=== PATIENT | female | born 2000 | race Caucasian/White ===

== ENCOUNTER 2022-07-23 07:54 | Outpatient (CLI) | payer BC, SELFPAY | END 2022-07-23 07:55 | disposition home or self-care (01) | LOC: AMB 09-12 20:28 | PROVIDERS: Visit Provider Family Medicine | DX: R55 Syncope and collapse (principal) | CPT/HCPCS: A0998 ==

== ENCOUNTER 2023-03-20 13:41 | Outpatient (CLI) | payer BC, SELFPAY | END 2023-03-20 13:42 | disposition home or self-care (01) | LOC: AMB 03-23 05:10 | PROVIDERS: Visit Provider Internal Medicine | DX: R06.09 Other forms of dyspnea (principal) | CPT/HCPCS: A0998 ==

== ENCOUNTER 2023-05-17 17:47 | Emergency (ER) | payer BC, SELFPAY ==
[2023-05-17 17:52] VITALS: BP 160/101; PULSE 110; RESP 18; TEMP 35.9; O2SAT 97; BMI 39.5
--- NOTE | 2023-05-17 18:10 | ED_ITS ---
HPI - Extremity Injury (Lower) General Chief Complaint: Extremity Pain/Injury, Lower Stated Complaint: L ankle pain, swelling Time Seen by Provider: 05/17/23 17:48 History of Present Illness HPI Narrative: This 22-year-old female twisted her left ankle a few days ago. She states that she walked on it for several hours afterward before going into urgent care. She had an x-ray there which was negative. She received a gel splint and crutches and was told if there is any swelling or any bruising that she needs to be seen again. Since then there has been some swelling and she states that she does not care to wear the splint and crutches are not well served for her with some back pain that she reports. Related Data Home Medications Medication Instructions Recorded Confirmed multivitamin 1 tab PO QAM 05/15/23 05/15/23 norethindrone 1 mg-ethinyl 1 tab PO DAILY 05/15/23 05/15/23 estradiol 10 mcg (24)-iron 10 mcg(2) tablet (Lo Loestrin Fe) Allergies Allergy/AdvReac Type Severity Reaction Status Date / Time Sulfa (Sulfonamide Allergy Verified 05/15/23 13:39 Antibiotics) Review of Systems Status of ROS: Reports: 10 or more systems reviewed and unremarkable except as noted in History and below Narrative: Constitutional: No fevers, no weight gain or loss. Eyes: No discharge. No vision changes. HENT: No congestion, no sore throat, no ear pain. Cardiovascular: No chest pain, no palpitations. Respiratory: No shortness of breath, no wheezes, no cough. Gastrointestinal: No abdominal pain, no vomiting, no diarrhea. Genitourinary: No dysuria, no hematuria. Musculoskeletal: Left ankle injury as described above. Skin: No rashes, no pruritis. Neurological: No dizziness, weakness, sensory change, speech change. Endo/Heme/Allergies: No bruising or bleeding. No polydipsia. Pysch: no suicidality, no anxiety, no insomnia. All other systems reviewed and are negative. PFSH PFSH Social History Smoking Status: Never smoker Do you use any of these nicotine containing products: None Second hand tobacco smoke exposure: No How often do you have a drink containing alcohol: never How often do you have six or more drinks on one occasion: Never AUDIT-C Alcohol total score: 0 Non-prescribed substance use: denies use service: No Exam Narrative: Exam Narrative: Constitutional: Well-developed, well-nourished, no acute distress. HEENT: Normocephalic, atraumatic. Neck: Normal range of motion. Nontender. Supple. Heart: Intact distal pulses. Lungs: No chest discomfort. No wheezes, rhonchi, or rales. Abdomen: Nontender. Back: Normal range of motion. Extremities: Mild to moderate swelling over the left lateral malleolus. No joint instability or joint effusion. Decreased range of motion due to pain. Skin: Intact. No rash. Warm. No erythema or pallor. Neurologic: No altered sensation. No weakness. Alert and oriented. Psychiatric: No suicidality. No anxiety or depression. No insomnia. Nursing notes and vitals signs are reviewed. Const: Vital Signs, click to edit/add: Vital Signs - 24 hr 05/17/23 17:52 Temperature 96.6 F L Pulse Rate [Pulse Oximeter] 110 H Respiratory Rate 18 Blood Pressure [Ri ght Forearm] 160/101 H Pulse Oximetry 97 Oxygen Delivery Me thod Room Air Course Vital Signs Vital signs: Initial Vital Signs Temperature 96.6 F L 05/17/23 17:52 Temperature Source Temporal Artery Scan 05/17/23 17:52 Pulse Rate 110 H 05/17/23 17:52 Pulse Rhythm Regular 05/17/23 17:52 Respiratory Rate 18 05/17/23 17:52 Blood Pressure 160/101 H 05/17/23 17:52 Blood Pressure Mean 120 H 05/17/23 17:52 Blood Pressure Position Supine 05/17/23 17:52 Pulse Oximetry 97 05/17/23 17:52 Oxygen Delivery Method Room Air 05/17/23 17:52 Vital Signs Temperature 96.6 F L 05/17/23 17:52 Pulse Rate 110 H 05/17/23 17:52 Respiratory Rate 18 05/17/23 17:52 Blood Pressure 160/101 H 05/17/23 17:52 Pulse Oximetry 97 05/17/23 17:52 Oxygen Delivery Method Room Air 05/17/23 17:52 Temperature 96.6 F L 05/17/23 17:52 Pulse Rate 110 H 05/17/23 17:52 Respiratory Rate 18 05/17/23 17:52 Blood Pressure 160/101 H 05/17/23 17:52 Pulse Oximetry 97 05/17/23 17:52 Oxygen Delivery Method Room Air 05/17/23 17:52 MDM - Extremity Injury (Lower) MDM Narrative Medical decision making narrative: This patient has an ankle sprain with some typical symptoms of swelling on the lateral aspect as would be expected. She did have an x-ray in urgent care and I did review the images and the radiology report. There is no sign of fracture or dislocation. The patient comes in because she was told that if there is any swelling or bruising she needs to be seen again. This patient does have an ankle sprain but I stated to her that it is okay to ambulate as tolerated. She can wear this splint if desired but if she wears a too long it can actually weak in her muscles and prolong her recovery. She states that she does not care to wear the splint and would rather ambulate on the leg as tolerated as she does not like to use crutches. She is okay to be discharged home and received a prescription for Toradol from the [facility]. Discharge Plan Discharge Clinical Impression: Ankle sprain and strain Patient Disposition: Home, Self-Care Condition: Stable Additional Instructions: Take medication as needed and directed. Increase activity as tolerated. Follow up with MD or return if worsening. Prescriptions: No Action Lo Loestrin Fe 1 mg-10 mcg (24)/10 mcg (2) tablet 1 tab PO DAILY multivitamin Tablet 1 tab PO QAM Follow Up/Referrals: Provider,Not a Local [Primary Care Provider] - Stand Alone Forms: [employer] Info Instructions
== END 2023-05-17 18:23 | disposition home or self-care (01) ==
LOC: ED 18:21
PROVIDERS: Emergency Provider Emergency Medicine Emergency Medical Services; PCP Internal Medicine Cardiovascular Disease
DX: S93.402A Sprain of unspecified ligament of left ankle, initial encounter (principal)
CPT/HCPCS: 99283; 99284

== ENCOUNTER 2023-06-10 23:26 | Emergency (ER) | payer BC, SELFPAY ==
[2023-06-10 23:34] VITALS: BP 145/84; PULSE 85; RESP 18; TEMP 36.8; O2SAT 99; BMI 39.5
--- NOTE | 2023-06-11 00:14 | ED_ITS ---
HPI - General Adult General Chief complaint: Unspecified Complaint, Adult Stated complaint: Feeling Ill, Time Seen by Provider: 06/10/23 23:58 Source: patient Mode of arrival: ambulatory Limitations: no limitations History of Present Illness HPI narrative: 23-year-old female was advised to come in by nurse line after she had about 6 hours of diarrhea at home. Nonbloody, not accompanied by trauma or fever. No p rior history of abdominal surgeries. No vomiting. She is able to take down p.o. liquids with no difficulty. She has a mild epigastric area ache and then of course cramping with the diarrhea. No syncope or weakness. She reports that she did drink significant amounts of alcohol the night before in celebration of her 23st birthday. She has also recently started taking Prozac And Lunesta. No history of inflammatory bowel disease. She tried taking 2 Imodium earlier in the night with no improvement, then another tablet just prior to coming to the ED with no improvement in her symptoms. She also at some point took some Pepto- Bismol but she is not able to relate times to me which is curious. She reports a past medical history is notable for depression and anxiety. Home meds are Prozac, 10 mg once daily, Lunesta and an oral contraceptive. She is a nonsmoker. Recent binge drinking episode does not seem characteristic of her typical behavior. No pertinent travel. No obvious sick contacts. ROS notable for the GI symptoms as above only, otherwise denies times 12 systems Related Data Home Medications Medication Instructions Recorded Confirmed multivitamin 1 tab PO QAM 05/15/23 05/15/23 norethindrone 1 mg-ethinyl 1 tab PO DAILY 05/15/23 05/15/23 estradiol 10 mcg (24)-iron 10 mcg(2) tablet (Lo Loestrin Fe) Allergies Allergy/AdvReac Type Severity Reaction Status Date / Time Sulfa (Sulfonamide Allergy Verified 05/15/23 13:39 Antibiotics) [facility] Medical History No significant past medical history Surgical History No significant past surgical history Social History Smoking Status: Never smoker Do you use any of these nicotine containing products: None Second hand tobacco smoke exposure: No How often do you have a drink containing alcohol: never How often do you have six or more drinks on one occasion: Never AUDIT-C Alcohol total score: 0 Non-prescribed substance use: denies use service: No Exam Const: Vital Signs, click to edit/add: Vital Signs - 24 hr 06/10/23 23:34 Temperature 98.2 F Pulse Rate [Right Pulse Oximeter] 85 Respiratory Rate 18 Blood Pressure [Ri ght Upper Arm] 145/84 H Pulse Oximetry 99 Oxygen Delivery Me thod Room Air Documenting provider has reviewed patient's vital signs: yes Common normals: no apparent distress General appearance: cooperative and well kempt Other: able to take p.o. liquids with no difficulty, demonstrated in the room. HENMT: Common normals: normocephalic Head and scalp: normocephalic Face and sinus: normal facial exam Eye: General eye: normal appearance of both eyes Resp: Common normals: normal respiratory effort, no use of accessory muscles and clear to auscultation bilaterally Effort & inspection: able to speak in complete sentences Auscultation: clear to auscultation bilaterally Cardio: Common normals: regular rate, regular rhythm, S1 normal heart sound, S2 normal heart sound and no murmurs Rate: regular rate Rhythm: regular rhythm Heart sounds: S1 normal and S2 normal GI: Common normals: Normal to inspection, nondistended, normoactive bowel sounds present, soft to palpation, non-tender, no hepatosplenomegaly and no masses Palpation: soft and no hepatosplenomegaly Extremity: Common normals: normal to inspection and normal capillary refill Neuro: Speech: speech normal Gait (neuro): normal gait Motor exam: no movement abnormalities noted Psych: Appearance: well kempt Attitude: engaged Insight: insight good Judgement: judgment good Skin: Common normals: no rashes or lesions noted General skin exam: no rashes or lesions noted Course Course Hospital Course: Mild nonbloody diarrhea with no features of dangerous infection. No hypoten antonio, tachycardia, syncopal symptoms, weakness, mental status changes or other abnormality. Exam is also reassuring against obstruction, severe intra- abdominal pathology, pancreatitis or inflammatory bowel disease. There is no indication for IV fluids, further workup, imaging or labs at this time. Counseled patient on home management, continued use of Imodium. Alarm symptoms reviewed that would warrant ED presentation. She verbalizes understanding and agreement. She will be discharged home to continue p.o. hydration. Vital Signs Vital signs: Initial Vital Signs Temperature 98.2 F 06/10/23 23:34 Temperature Source Temporal Artery Scan 06/10/23 23:34 Pulse Rate 85 06/10/23 23:34 Respiratory Rate 18 06/10/23 23:34 Blood Pressure 145/84 H 06/10/23 23:34 Blood Pressure Mean 104 06/10/23 23:34 Blood Pressure Position Sitting 06/10/23 23:34 Pulse Oximetry 99 06/10/23 23:34 Oxygen Delivery Method Room Air 06/10/23 23:34 Vital Signs Temperature 98.2 F 06/10/23 23:34 Pulse Rate 85 06/10/23 23:34 Respiratory Rate 18 06/10/23 23:34 Blood Pressure 145/84 H 06/10/23 23:34 Pulse Oximetry 99 06/10/23 23:34 Oxygen Delivery Method Room Air 06/10/23 23:34 Temperature 98.2 F 06/10/23 23:34 Pulse Rate 85 06/10/23 23:34 Respiratory Rate 18 06/10/23 23:34 Blood Pressure 145/84 H 06/10/23 23:34 Pulse Oximetry 99 06/10/23 23:34 Oxygen Delivery Method Room Air 06/10/23 23:34 Discharge Plan Discharge Clinical Impression: Gastroenteritis Patient Disposition: Home, Self-Care Condition: Stable Instructions: Acute Diarrhea (ED) Additional Instructions: as we discussed, there are no red flags that alert me that there is something worrisome about your diarrhea. As discussed, there are certainly no signs of dehydration with this short duration of symptoms. Your vital signs all look normal. Ear exam is not suggestive of obstruction or other dangerous reason for the diarrhea. Most likely etiology is a viral gastroenteritis. These tend to run their course in about 48 hours. Diarrhea of less than 48 hours duration is rarely worrisome in a young healthy person otherwise. As we discussed, we worry if diarrhea is accompanied by a fever over 100.4 for more than 12 hours and or is accompanied by large amounts of blood in your stool. We do not run studies to check what the cause of the diarrhea is unless it is bloody. You made a good choice to start taking the Imodium. Now that you have had your initial for tablet loading dose, continue taking 1 tablet every 2 hours if you continue to have diarrhea spells. You may use up to 8 tablets in 24 hours. This will not completely eliminate the diarrhea but will help slow it. I do not tend to find Pepto-Bismol additionally affective and it may significantly inhibit the absorption of your Imodium. Therefore I would recommend that you not continue to take the Pepto-Bismol. Continue to push fluids by mouth. Symptoms should start to improve within 48 hours of onset. Activity Level: No Restrictions Discharge Diet: Regular Prescriptions: No Action Lo Loestrin Fe 1 mg-10 mcg (24)/10 mcg (2) tablet 1 tab PO DAILY multivitamin Tablet 1 tab PO QAM Follow Up/Referrals: Wojciech Suazo MD [Primary Care Provider] - Stand Alone Forms: [employer] Info Instructions
[2023-06-11 00:18] VITALS: BP 141/78; PULSE 79; RESP 18; TEMP 36.8; O2SAT 99
[2023-06-11 00:30] VITALS: BP 141/78; PULSE 79; RESP 18; TEMP 36.8
== END 2023-06-11 00:30 | disposition home or self-care (01) ==
LOC: ED 06-11 00:19
PROVIDERS: Emergency Provider Family Medicine; PCP Internal Medicine Cardiovascular Disease
DX: K52.9 Noninfective gastroenteritis and colitis, unspecified (principal)
CPT/HCPCS: 99282; 99283

== ENCOUNTER 2024-11-14 15:58 | Emergency (ER) | payer OTHER, SELFPAY ==
--- OUTSIDE RECORDS SUMMARY | 2024-11-14 16:00 | XMS_ITS | Clinical Summary ---
Author Organization [facility] Address [address] [place] [address]. 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 Role Phone Sarah Suazo MD Primary Care Provider [phone] Sarah Suazo MD Unavailable Allergies Active Allergy Reactions Criticality Noted Date Comments Sulfamethoxazole-Trimethoprim Anaphylaxis High 04/12 Medications ondansetron (ZOFRAN ODT) 4 MG ODT tab Take 1 tablet (4 mg) by mouth every 8 hours as needed for nausea 10 tablet 03/21/2023 Active promethazine (PHENERGAN) 25 MG tablet Take 0.5 tablets (12.5 mg) by mouth every 6 hours as needed for nausea 12 tablet 03/22/2023 Active prochlorperazin e (COMPAZINE) 10 MG tabletIndicatio ns:Ketosis (H),Nausea vomiting and diarrhea Take 1 tablet (10 mg) by mouth every 6 hours as needed for nausea or vomiting 12 tablet 03/24/2023 Active Norethin-Eth Estrad-Fe Biphas (LO LOESTRIN FE) 1 MG-10 MCG / 10 MCG TABS Take 1 tablet by mouth daily Active gabapentin (NEURONTIN) 100 MG capsule Take 100 mg by mouth 3 times daily Active Active Problems Problem Noted Date Diagnosed Date Dehydration 03/23/2023 Ketosis 03/23/2023 Nausea vomiting and diarrhea 03/23/2023 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 Class 2 obesity in adult 05/04/2020 Migraine with aura and witho ut status migrainosus, not intractable 06/16/2018 Scoliosis 03/24/2017 Abnormal menstrual periods 03/24/2017 Depression with anxiety 03/24/2017 Insomnia 03/24/2017 Psychogenic nonepileptic seizure 12/30/2016 Conversion disorder with attacks or seizures Immunizations Name Administration Dates Next Due COVID-19 12+ (Pfizer) 08/07/2023 COVID-19 MONOVALENT 12+ (Pfizer) 02/24/2021,01/12 COVID-19 Monovalent 12+ (Pfizer 2021) 01/28/2022 DTAP (<7y) 06/13/2006, 3,2002,10/15,2002 HEPATITIS A (PEDS 12M-18Y) 06/04/2011 HIB, Unspecified 09/14/2003, 3,2002,08/24 HPV Quadrivalent 07/12/2014,05/09/2014 HPV9 07/25/2015 HepB, Unspecified 2002,2002 Hepatitis A (ADULT 19+) 05/09/2014 Hepatitis B, Adult 2002 Hepatitis B, Peds 2002 Influenza Vaccine >6 months,quad, PF ,08/19/2022,07/26/2021,07/04,09/12/2017,06/28/2016 Influenza Vaccine, 6+MO IM (QUADRIVALENT W/PRESERVATIVES) 08/10/2019,06/16/2018,09/12/2017,06/28 MMR 06/13/2006,06/10/2003 Meningococcal ACWY (Menveo ) 05/09/2014 OPV, trivalent, live 03/11/2003,2002 Pneumococcal (PCV 7) 06/10/2003,02/12/2003,08/24 Poliovirus, inactivated (IPV) 06/13/2006, 003,2002 TDAP (Adacel,Boostrix) 12/20/2020 TDAP Vaccine (Adacel) 05/09/2014 Varicella 06/13/2006,06/10/2003 Family History Medical History Relation Comments Substance Abuse Father never in life Diabetes Type 2 Maternal Grandfather Hypertension Maternal Grandfather Arthritis Maternal Grandmother Diabetes Type 2 Maternal Grandmother Hypertension Maternal Grandmother Lupus Maternal Grandmother Alcoholism Mother Hepatitis Mother Hepatitis C Seizure Disorder Mother Substance Abuse Mother IV Relation Status Comments Father Maternal Grandfather Maternal Grandmother Mother Social History Tobacco Use Types Packs/Day Years Used Date Smoking Tobacco: Never Passive Smoke Exposure: Never Smokeless Tobacco: Never Tobacco Cessation:Counseling Given: Not Answered Comments:No exposure Alcohol Use Standard Drinks/Week Comments No 0 (1 standard drink = 0.6 oz pur e alcohol) PHQ-2 Answer Date Recorded PHQ-2 Score 6 10/29/2022 Adolescent Education Answer Date Record ed Getting School Help Needed Not on file 07/04 Comments No Sex and Gender Information Value Date Recorded Sex Assigned at Not on file Legal Sex 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 Gender Identity Not on file Sexual Orientation Not on file Last Filed Vital Signs Vital Sign Reading Time Taken Comments Blood Pressure 131/81 03/24/2023 9:07 AM CDT Pulse 80 03/24/2023 9:07 AM CDT Temperature 36.9 C (98.5 F) 03/24/2023 9:07 AM CDT Respiratory Rate 16 03/24/2023 9:07 AM CDT Oxygen Saturation 96% 03/24/2023 9:07 AM CDT Inhaled Oxygen Concentration - - Weight 115.9 kg (255 lb 9.6 oz) 03/24/2023 2:08 AM CDT Height 172.7 cm (5' 8) 03/24/2023 2:08 AM CDT Body Mass Index 38.86 03/24/2023 2:08 AM CDT Plan of Treatment Health Maintenance Due Date Last Done Comments ADVANCE CARE PLANNING 2002 DEPRESSION ACTION PLAN 2002 HIV SCREENING 2017 MENINGITIS B IMMUNIZATION (1 of 2 - Standard) 2018 HEPATITIS C SCREENING 2020 CHLAMYDIA SCREENING 05/03/2023 05/03/2022, 06/01/2021, 06/22/2019, Additional history exists ANNUAL REVIEW OF HM ORDERS 10/29/2023 10/29/2022 PHQ-9 12/04/2023 06/03/2023, 10/13, 03/15/2021, Additional history exists COVID-19 Vaccine ( season) 2024 08/07/2023, 01/28/2022, 02/24/2021, Additional history exists INFLUENZA VACCINE (#1) 2024 3, 08/19/2022, 07/26/2021, Additional history exists YEARLY PREVENTIVE VISIT 06/30/2024 06/30/20 23, 06/01/2021, 06/01/2021, Additional history exists PAP 06/30/2026 06/30/2023 DTAP/TDAP/TD IMMUNIZATION (8 - Td or Tdap) 12/20/2030 12/20/2020, 05/09/2014, 06/13/2006, Additional history exists ZOSTER IMMUNIZATION (1 of 2) 2052 RSV VACCINE (1 - 1-dose 75+ series) 2077 HEPATITIS B IMMUNIZATION Completed 003, 2002, 2002, Additional history exists Pneumococcal Vaccine: Pediatrics (0 to 5 Years) and At-Risk Patients (6 to 49 Years) Aged Out 06/10/2003, 02/12/2003, 2002 No longer eligible based on patient's age to complete this topic MENINGITIS IMMUNIZATION Aged Out 05/09/2014 No l onger eligible based on patient's age to complete this topic HPV IMMUNIZATION Completed 07/25/2015, , 05/09/2014 RSV MONOCLONAL ANTIBODY Aged Out No l onger eligible based on patient's age to complete this topic Procedures Procedure Name Priority Date/Time Associated Diagnosis Comments GYNECOLOGIC CYTOLOGY Routine 06/30/2023 3:25 PM CDT Encounter for screening for malignant neoplasm of cervix PHQ-9 DEPRESSION SCREENING ORDER Routine 06/03/2023 CHLAMYDIA TRACHOMATIS PCR STAT 05/03/2022 6:09 AM CDT from Last 3 Months or Most Recently Relevant to Health Maintenance Results * Gynecologic Cytology (PAP) (06/30/2023 3:25 PM CDT) Interpretation Negative for Intraepithelial Lesion or Malignancy (NILM) 07/03/2023 12:10 PM CDT [facility] Comment Papanicolaou Test Limitations: Cervical cytology is a screening test with limited sensitivity, and regular screening is critical for cancer prevention. Pap tests are primarily effective for the diagnosis/prevent ion of squamous cell carcinoma, not adenocarcinoma or other cancers. 07/03/2023 12:10 PM CDT [facility] Specimen Adequacy Satisfactory for evaluation, endocervical/eason sformation zone component absent 07/03/2023 12:10 PM CDT [facility] Clinical Information none 07/03/2023 12:10 PM CDT [facility] LMP/Menopause Date irregular 07/03/2023 12:10 PM CDT [facility] Reflex Testing Yes if ASCUS 07/03/20 12:10 PM CDT [facility] Previous Abnormal? No 07/03/2023 12:10 PM CDT [facility] Previous Abnormal Diagnosis None 07/03/2023 12:10 PM CDT [facility] Performing Labs The technical component of this testing was completed at [facility] 07/03/2023 12:10 PM CDT [facility] Brushing CERVIX UTERI STRUCTURE / Unknown 06/30/2023 3:25 PM CDT 06/30/2023 9:43 PM CDT Nuha Nunn APRN RATE AND COST ANALYST YASIR - LAILA GUZMÁN Final Result [facility] [address] [facility] [address] [facility], [address] [place] [address], [facility] [phone] * PHQ-9 DEPRESSION SCREENING ORDER (06/03/2023) PHQ9 SCORE 16 Kenna Tafoya - 06/03/2023 PSYCHIATRIC ASSESSMENT [facility] us Provider Outside OTHER Final Result * Chlamydia trachomatis PCR (05/03/2022 6:09 AM CDT) Chlamydia trachomatis Negative Negative 05/04/2022 1:08 PM CDT [facility] Comment:A negative result by bench worker binding mediated amplification does not preclude the presence of C. trachomatis infection because results are dependent on proper and adequate collection, absence of inhibitors and sufficient rRNA to be detected. Swab VOIDED URINE SPECIMEN / Unknown Non-blood Collection / Unknown 05/03/2022 6:09 AM CDT 05/03/2022 7:25 AM CDT us Bablir Greene MD LAB - MICRO GENERAL ORDERABLES F inal Result [facility] Inf. Diseases Diag. Lab [address] [facility] [place] [address], [facility] [phone] from Last 3 Months or Most Recently Relevant to Health Maintenance Advance Directives For more information, please contact: [phone] * Full Code (Latest Code Status on File) Date Activated Date Inactivated Comments 03/24/2023 12:59 AM 03/24/2023 2:42 PM All basic a nd advanced life-sustaining interventions are performed as appropriate Question Answer Comments Code status determined by: Discussion with patie nt/ legal decision maker Care Teams Tin Can Laborer Relationship Specialty Start Date End Date Sarah Suazo MD PCP - General Family Practice 11/05/17 Sarah Suazo MD [address] [facility] [address] [address] Assigned PCP 03/28/21
--- OUTSIDE RECORDS SUMMARY | 2024-11-14 16:00 | XMS_ITS | Referral Summary ---
Author Organization [place] Address [address] [place] [address]. 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, [address] [address], [facility] [phone] * PHQ-9 DEPRESSION SCREENING ORDER (06/03/2023) PHQ9 SCORE 16 Narrative Kenna Varela - 06/03/2023 PSYCHIATRIC ASSESSMENT [facility] Provider Outside OTHER Final Result * Chlamydia trachomatis PCR (05/03/2022 6:09 AM CDT) Chlamydia trachomatis Negative Negative 05/04/2022 1:08 PM CDT [facility] Comment:A negative result by after school counselor mediated amplification does not preclude the presence of C. trachomatis infection because results are dependent on proper and adequate collection, absence of inhibitors and sufficient rRNA to be detected. Swab VOIDED URINE SPECIMEN / Unknown Non-blood Collection / Unknown 05/03/2022 6:09 AM CDT 05/03/2022 7:25 AM CDT us Balbir Greene MD LAB - MICRO GENERAL ORDERABLES F inal Result [facility] Inf. Diseases Diag. Lab [address] [facility], [address] [place] [address], [facility] [phone] from Last 3 Months or Most Recently Relevant to Health Maintenance Advance Directives For more information, please contact: [phone] * Full Code (Latest Code Status on File) Date Activated Date Inactivated Comments 03/24/2023 12:59 AM 03/24/2023 2:42 PM All basic a nd advanced life-sustaining interventions are performed as appropriate Question Answer Comments Code status determined by: Discussion with gi nt/ legal decision maker Care Teams Grout Machine Operator Relationship Specialty Start Date End Date Sarah Suazo MD PCP - General Family Practice 11/05/17 Sarah Suazo MD [address] [facility] [address] [place] [address] [address] Assigned PCP 03/28/21
--- OUTSIDE RECORDS SUMMARY | 2024-11-14 16:00 | XMS_ITS | Encounter Summary ---
Author Organization [place] Address [address] [place], [place] 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 Gender Identity Not on file Sexual Orientation Not on file documented as of this encounter Plan of Treatment Not on file documented as of this encounter Visit Diagnoses Not on filedocumented in this encounter Additional Health Concerns Infection Onset Date Last Indicated Resolved Time Rule Out COVID-19 07/18/2022 07/18/2022 07/18/2022 10:21 PM CDT Rule Out COVID-19 07/20/2022 07/20/2022 07/20/2022 2:36 AM CDT Rule Out COVID-19 01/03/2023 01/03/2023 01/04/2023 12:31 PM CDT COVID-19 01/03/2023 01/03/2023 01/24/2023 11:3 9 PM CDT Rule Out COVID-19 03/22/2023 03/22/202303/22/2023 12:50 PM CDT Assessment Noted Time PHQ-9 Depression Total Score: 19 021 7:58 PM CDT documented as of this encounter Care Teams Digital Media Strategist Relationship Specialty Start Date End Date Sarah Suazo MD PCP - General Family Practice 11/05/17 Sarah Suazo MD [address] [facility] [address] [address] Assigned PCP 03/28/21 documented as of this encounter
--- OUTSIDE RECORDS SUMMARY | 2024-11-14 16:00 | XMS_ITS | Encounter Summary ---
Author Organization [place] Address [address] [place], [place] [address] [address] Care Team Providers Care Industrial Equipment Wirer Name Role Phone Sarah Suazo MD Primary Care Provider [phone] Sarah Suazo MD Unavailable [phone] Encounter Details Date Type Department Care Team (Late st Contact Info) Description 09/16/2021 Documentation Only INTERFACED REPORT Unknown, Provider Social History Tobacco Use Types Packs/Day Years Used Date Smoking Tobacco: Never Smokeless Tobacco: Never Comments:No exposure Alcohol Use Standard Drinks/Week Comments No 0 (1 standard drink = 0.6 oz pur e alcohol) PHQ-2 Answer Date Recorded PHQ-2 Score 6 03/15/2021 Comments No Sex and Gender Information Value Date Recorded Sex Assigned at Not on file 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 No / Unsure 09/16/2021 2:53 AM LIFESTYLE DIRECTOR documented as of this encounter Plan of [...] 9 PM CDT Rule Out COVID-19 03/22/2023 03/22/2023 03/22/2023 12:50 PM CDT Assessment Noted Time PHQ-9 Depression Total Score: 19 021 7:58 PM CDT documented as of this encounter Care Teams Industrial Equipment Wirer Relationship Specialty Start Date End Date Sarah Suazo MD PCP - General Family Practice 11/05/17 Sarah Suazo MD [address] [facility] [address] [place] [address] [address] Assigned PCP 03/28/21 documented as of this encounter
--- OUTSIDE RECORDS SUMMARY | 2024-11-14 16:00 | XMS_ITS | Data Portability ---
Author Organization [facility], [id number]_KLS[facility]LSC[facility] Address [address] [place] [id number] Care Team Providers Care Mechanical Lead Name Role Phone SARAH BRYANT Primary Care Provider Assessment Encounter Date Assessment Date Assessment LastModified by Organization Details LastModified Time 05/13/2022 05/13/2022 I spent a total of 20 minutes providing care for this patient including: preparing to see the patient, obtaining a medical history, completing a medically appropriate physical exam, completing documentation of visit information and plans in the EMR, counseling the patient and/or caregiver regarding her diagnosis, treatment options and follow up plans, as well as any necessary communication of subsequent test results to the patient, reviewing medical records, reviewing imaging, counseling the patient and/or caregiver regarding health maintenance recommendations [email or web address] Not available 05/13/2022 12:20:08 Plan of Treatment Reminders Order Date Submit Date Provider Last Modified By Organization Details Last Modified Time Details Appointments None recorded. Lab CT + NG DNA, PCR, urine 2020 021 [facility], [address] [place], [address], 13:02:14 Pap test, slide(s), cervical 2022 023 [facility], [address], [id number], [place], [address], 3 13:12:25 Referral None recorded. Procedures None recorded. Surgeries None recorded. Imaging None recorded. Medication Orders Lo Loestrin Fe 1 mg-10 mcg (24)/10 mcg (2) tablet 2020 021 [facility] #[id number], [address] [place], [place], [place], [id number], 1 01:30:44 Lo Loestrin Fe 1 mg-10 mcg (24)/10 mcg (2) tablet 2021 022 [facility] #55420, [address] [place], [place], [id number], 2 13:07:34 Lo Loestrin Fe 1 mg-10 mcg (24)/10 mcg (2) tablet 2022 023 [facility] #[id number], [address] [place], [place], [id number], 3 14:17:56 Patient TargetsNo targets recorded. Patient Instructions Encounter Date Encounter Id Patient Instructions Last Modified By Organization Details Last Modified Time 06/01/2021 [id number] - Return to clin ic in one year for your annual exam. [email or web address] Not available 04/26/2021 15:33:24 RTC in 1 year fo r annual exam Continue current contraception - OCP. Sent script. Sent GC, CT. Will call pt with results. Declines labs today since had with PCP and normal. Advised to always wear seatbelt. Recommended monthly breast checks. Pt reports FmHx of breast, ovarian and colon cancers on her maternal side of the family. Denies FmHx of uterine or cervical cancers. Gave information about Genetic Cancer Screening. Pt to RTC with completed form for blood draw if chooses to go ahead with screening. All questions answered. Not available 06/02/2021 01:32:54 06/30/2023 [id number] - Routine health maintenance reviewed. - Breast self exams discussed. - Cervical cancer screening guidelines reviewed. Will contact with pap results. - Encourage regular exercise. - OCP refilled. Call with persistent irregular bleeding. - Given info for Empower cancer screening. Ok to schedule lab appt for this if desires. [email or web address] Not available 06/30/2023 15:21:29 Reason for Referral None Reported. Results Created Date Observation Date Name Description Value Unit Range Abnormal Flag Note LastModifiedBy Organization Detail LastModifiedTime 06/01/20 21 06/01/2021 CHLAM YDIA/ NEISS ERIA PCR-U RINE chlam. amp. Negati ve for the presen ce of Chlamy andres tracho matis DNA by PCR. negati ve Not Available [facility] [address], [place], [address], 06/04/2021 13:02:14 06/01/20 21 06/01/2021 CHLAM YDIA/ NEISS ERIA PCR-U RINE neis. amp. Negati ve for the presen ce of Neisse cheri gonorr hoeae DNA by PCR. negati ve Not Available [facility] [address], [place], [address], 06/04/2021 13:02:14 06/30/20 23 06/30/2023 GYNEC OLOGI C CYTOL OGY (PAP SMEAR ) gynecologic cytology SEE RESULT S BELOW SPECI MEN SOURC E Bonita ing Cervi x BKR LAB AP SEMICONDUCTOR PACKAGES TESTER INTER PRETA TION: Negat fortino for Intra epith elial Lesio n or Odell goldberg (NILM ) Elect meri celeste vania d by Gardenia steele, Hitesh E, CT (ASCP ) on 2022 at 12:10 PM Path elizabeth [email or web address] ments Imp Spec: Papan icola ou Test Limit ation s: Cervi red cytol ogy is a scree mildred test with limit ed sensi tivit y, and regul ar scree mildred is criti red for cance r preve ntion . Pap tests are prima rily effec tive for the diagn osis/ preve ntion of squam ous cell carci noma, not adeno carci noma or other cance rs. BKR LAB AP SEMICONDUCTOR PACKAGES TESTER ADEQU ACY: Satis facto ry for evalu ation , endoc ervic al/tr ansfo rmati on zone compo nent absen t Path repor t.rel evant Hx Spec: none BKR LAB AP LMP: irreg ular BKR LAB AP HPV REFLE X: Yes if ASCUS BKR LAB AP PREVI OUS ABNOR MAL: No BKR LAB AP PREVI OUS ABNL DX: None Path repor [email or web address].com ments Imp Spec: The techn ical compo nent of this testi ng was [facility] Not Available [facility] [address], [place], [address], 07/03/2023 13:12:25 Result Notes None recorded. Problems Name Problem SNOMED Code Status Onset Date Resolution Date Notes Provider Name and Address Organization Details Recorded Time Anxiety 79367052 Active Zachary Riser (TERMED) null, [facility] 15:15:31 Depressive disorder 77651997 Active Zachary Riser (TERMED) null, [facility] 15:15:43 Constipati on 25978028 Active Zachary Riser (TERMED) null, [facility] 15:15:48 Menometror rhagia 096503607 Active Zachary Riser (TERMED) null, [facility] 15:16:05 Migraine 66085729 Active Zachary Riser (TERMED) null, [facility] 15:16:10 Degenerati ve disorder 285164077 Active Disc. Dr. Edwards with [place] in [facility] Zachary Riser (TERMED) null, [facility] 15:19:03 Problem Notes None recorded. Procedures Surgical History Date Name Laterality Status Provider Name and Address Organization Details Recorded Time 7 Tonsillectomy completed Candida Duong [facility] 06/01/2021 11:12:52 Imaging Results None recorded. Procedure Notes None recorded. Medical Equipment None Reported. Allergies Allergen ID Allergen Name Allergen Category Reaction Reaction Severity Criticality Documentation Date Start Date Code Code System Note Provider Name and Address Organization Details Recorded Time buspirone medicatio n palpitati ons Not available Not available 06/01/2021 1827 RxNorm hyper tensi on Candida ForteALTAGRACIA belle [facility] 11:15:37 00379 Substance with sulfonami de structure and antibacte rial mechanism of action (substanc e) medicatio n Not available Not available Not available 05/18/2020 18167 8003 SNOMED Rash / Hives , Itchy Eyes, Stuff y nose, Cough ing, D [facility] 11:08:34 Medications Name Sig Start Date Stop Date Status Note LastModified by Organization Details LastModified Time Prescription - Prior Authorizatio n Request 06/30 completed Not Available Not Available Not Available cyclobenzapr ine 10 mg tablet as needed 05/13 completed Not Available Not Available Not Available neomycin-luzmaria ymyxin-hydro maverick 3.5 mg/mL-10,000 unit/mL-1 % ear solution 05/13 completed Not Available Not Available Not Available cephalexin 500 mg capsule 06/01 completed Not Available Not Available Not Available buspirone 10 mg tablet 06/01 completed Not Available Not Available Not Available gabapentin 300 mg capsule 06/01 completed Not Available Not Available Not Available diclofenac sodium 75 mg tablet,delay ed release 06/01 completed Not Available Not Available Not Available fluoxetine 20 mg capsule Take 1 capsule every day by oral route. active Not Available Not Available No t Available eszopiclone 3 mg tablet active Not Available Not Available Not Available Lo Loestrin Fe 1 mg-10 mcg (24)/10 mcg (2) tablet Take 1 tablet(s ) every day by oral route. active Not Available Not Available No t Available Vitals Date Recorded Body weight Provider Name an d Address Organization Details Last Updated DateTime 06/01/2021 848384.39 g Marcomallika Fortegregory Vinsontammy [facility] 11:11:50 Date Recorded Body mass index (BMI) Percentile per age and sex Body mass index (BMI) Body height Provider Name and Address Organization Details Last Updated DateTime 06/01/2021 98 % 36 kg/m2 172.72 cm Candida Fortegregory [facility] 06/01/2021 11:11:52 Date Recorded Body height Provider Name an d Address Organization Details Last Updated DateTime 05/13/2022 172.72 cm Daniliu Duong [place] [facility] 10/2021 11:38:21 Date Recorded Body mass index (BMI) Percentile per age and sex Body mass index (BMI) Body weight Provider Name and Address Organization Details Last Updated DateTime 05/13/2022 97 % 36.3 kg/m2 132882.58 g Marcomallika Forteg [place] [facility] 05/13/2022 11:38:33 Date Recorded Body weight Provider Name an d Address Organization Details Last Updated DateTime 06/30/2023 817102.61 gregory Sarah Vidya [place] [facility] 06/30/2023 14:04:09 Date Recorded Body mass index (BMI) Body height Provider Name and Address Organization Details Last Updated DateTime 06/30/2023 39.7 kg/m2 172.72 cm Sarah Dasilva [place] [facility] 06/30/2023 14:04:14 Date Recorded Systolic blood pressure Diastolic blood pressure Provider Name and Address Organization Details Last Updated DateTime 06/01/2021 116 mm[Hg] 82 mm[Hg] Daniliu Duong [place] [facility] 06/01/2021 11:14:08 Date Recorded Systolic blood pressure Diastolic blood pressure Provider Name and Address Organization Details Last Updated DateTime 05/13/2022 104 mm[Hg] 76 mm[Hg] Daniliu Ad [place] [facility] 05/13/2022 11:38:30 Date Recorded Systolic blood pressure Diastolic blood pressure Provider Name and Address Organization Details Last Updated DateTime 06/30/2023 120 mm[Hg] 86 mm[Hg] Sarah Dasilva [place] [facility] 06/30/2023 14:04:24 Social History Question Answer Notes LastModified by Organizat ion Details LastModified Time Tobacco Smoking Status Never Smoker Daniliu Ad amos [place] [facility] 06/01/2021 11:09:19 Do You Have An Advance Directive? No Information not available 06/01/2021 What Is Your Level Of Alcohol Consumption? None Information not available 06/01/2021 What Is Your Level Of Caffeine Consumption? Occasional Information not available 06/01/2021 How Much Tobacco Do You Chew? None Information not available 06/01/2021 Which Illicit Or Recreational Drugs Have You Used? None Denies Illicit Substance Abuse Information not available 05/03/2021 History Of Domestic Violence No [email or web address] Information not available 05/22/2020 Marital Status Single Informatio n not available 06/01/2021 Performs Monthly Self-breast Exam? No Information not available 06/01/2021 What Is Your Relationship Status? Single Information not available 05/03/2021 Are You Sexually Active? Yes Information not available 06/01/2021 Sex: Unknown Functional Status Question Answer Note LastModified by Organizat ion Details LastModified Time What is your exercise level? Occasional Information not available 06/01/2021 Mental Status None recorded. Family History Relationship Description Onset Age of this Age Resolved Age Notes LastModified by Organization Details LastModified Time Maternal Grandmother Osteoporosis Not available 0 06/01/2021 11:08:45 Maternal Grandmother Lupus erythematosu s Not available 2020 11:08:45 Maternal Grandmother Hypertensive disorder Not available 2020 13:05:16 Maternal Grandmother Disorder of thyroid gland Not available 2020 11:08:45 Maternal Grandmother Diabetes mellitus Not available 2020 11:08:46 Unspecified Relation Malignant tumor of ovary 49 Great Matern al Aunt Not available 06/01/2021 11:08:46 Unspecified Relation Malignant tumor of ovary 72 Great Matern al Grandm other Not available 06/01/2021 11:08:46 Unspecified Relation Malignant tumor of breast Matern al Great Aunt Not available 05/03/2021 13:16:10 Unspecified Relation Malignant tumor of colon Matern al Great Uncle Not available 05/03/2021 13:16:49 Unspecified Relation Disorder of thyroid gland Severa l Matern al Great Aunts Not available 05/03/2021 13:04:58 Unspecified Relation Hypercholest erolemia every one Not available 06/01/2021 11:08:46 Unspecified Relation Heart disease Not available 2020 13:06:21 Maternal Grandfather Diabetes mellitus Not available 2020 13:03:00 Maternal Grandfather Hypertensive disorder Not available 2020 13:05:16 Maternal Grandfather Hypercholest erolemia Not available 2020 11:08:46 Mother Lupus erythematosu s Not available 2020 11:08:46 Mother Hypertensive disorder Not available 2020 11:08:46 Mother Diabetes mellitus Not available 2020 11:08:46 Mother Disorder of thyroid gland Not available 2020 11:08:46 Father Hypertensive disorder Not available 2020 11:08:46 Medical History Condition Response Psych- Anxiety Disorder Y Ortho-Other Y Psych- Depression Y Neurology- Headaches/Migraines Y Ortho-Chronic Back Pain Y Gynecological History Statement/Question Response Sexually Active Y Age at Menarche: 13 Total lifetime partners Less than 5 Date of LMP Y Current Control Method Combined Or al Contraceptive Sexual Orientation Bisexual Date of Last Pap Smear Obstetrics History GPAL:G 0 P 0 0 0 0 Type Value Multiple Births 0 Full Term 0 Induced 0 Spontaneous 0 Premature 0 Living 0 Ectopics 0 Total 0 Past Encounters Encounter ID Performer Location Encounter Start Date Encounter Closed Date Diagnosis/Indication Diagnosis SNOMED-CT Code Diagnosis ICD10 Code Diagnosis Note [id number] BURKE ELKINS PA-C [id number] MELECIO [facility] [address] [place] [id number] 06/01/2021 10:55:08 06/04/2021 10:54:56 Contraception care management 825004903 Z30.9 Gynecologi c examination 25004808 Z01.419 - RTC in one year for annual exam. Venereal d isease screening 771914974 Z11.3 [id number] Belkys Mcdonough DO [id number] MELECIO [facility] Y [address] [facility] [address] [place] [address] 05/13/2022 11:12:06 05/13/2022 15:34:46 Irregular periods 79667096 N92.6 Contracept ion care management 784344196 Z30.9 [id number] MIHAELA BOLIVARADORE [id number] MELECIO WELCH Y [address] [facility] [address] [place] [address] 06/30/2023 13:48:49 06/30/2023 15:28:44 Contraception care management 823274622 Z30.9 Routine gy necologic examination done 6195424014 9101 Z01.419 Screening for malignant neoplasm of cervix 491951397 Z12.4 Health Concerns Section Related Observation LastModified by Organization Detai ls LastModified Time None Recorded Concern Status LastModified by Organization Details LastModified Time None Recorded Advance Directives Directive N: Payers Encounter Date Sequence Insurance Name Policy Number Policy Kennedy Covered Member ID Kennedy Member ID Guarantor Name 06/01/2021 1 [place] [facility] [place] [id number] Eneida P Shinous[place]is 05/13/2022 1 [place] [facility] E[facility] [place] [id number] Eneida P [place] 06/30/2023 1 [place] [facility] Eneida [facility] [place] [id number] Eneida P [place] Notes Date Note Type Note Provider Name and Address Organization Details Recorded Time 06/01/2021 text/html Annual Premenopa usal ([facility])Reported bypatient.Patient Relationship To Practice:established patient Current Medical History:active medical problems stable; no recent surgeries or hospitalizations; Degenerative Disk Disease, Chronic Back pain, Anxiety Relevant Family History:family history of breast cancer(Maternal Great Aunt);family history of ovarian cancer(Great Maternal Grandmother and Great Maternal Aunt);family history of colon cancer(Maternal Great Uncle); no family history of uterine cancer Menstrual History:Quantity of Flow: light Contraceptive Method:Current Method Used: oral contraceptives Sexually Active:Yes: same partner (one partner the past 12 months) Health/Prevention:Ex ercise: yes; Breast Self Exam: no; Tobacco Use: no; Safe at home: yes Pap Smear +/- HPV Cotesting:not applicable Patient has:Primary Care Physician: yes Pt presents to clinic for her annual exam and control refill. BURKE ELKINS PA-C [id number] [facility],[address], [place], [address], [place] [facility] 06/02/2021 01:33:51 05/13/2022 text/html Abnormal Bleedin g ([facility])Reported bypatient.Patient Relationship with Practice:established patient Presents for:a follow up evaluation Reason for visit:abnormal pattern bleeding Last Normal Menses:04/30/2022 Frequency of Normal Menses:regular Pattern of Abnormal Bleeding:bleeding between periods;does interfere with daily activities Abnormal bleeding has been present for:12 days Contraceptive Method:oral contraceptive pills Diagnostic Testing:ultrasound and/or SIUS Associated Signs & Symptoms:painful periods(severe cramps)Notes: US 05/03/22:- Normal- Possible PCOS - period started mid-pack- lasted 12 days with pelvic severe cramps- pain+bleeding stopped yesterday am Pain was so intense, she had to press puller [address] to the ED. Was given Toradol in the ED. US performed revealed normal findings and PCOS. She has been tolerating this birthcontrol very well. Denies missing a pill or taking any other medications at the [place] [id number] [facility],[address], [place], [address], [place] [facility] 05/13/2022 12:20:47 06/30/2023 text/html Annual Premenopa usal ([facility])Reported bypatient.Patient Relationship To Practice:established patient Current Medical History:active medical problems Relevant Family History:family history of breast cancer;family history of ovarian cancer;family history of colon cancer; no family history of uterine cancer; no family history of blood clots/DVT; We discussed Empower screening. She will check with insurance. Menstrual History:Frequency of Menses: monthly; She reports normal menses with OCP use. She did have some breakthrough bleeding this cycle but has been very stressed this past month. Contraceptive Method:satisfied: oral contraceptives Sexually Active:Yes: STI Screen:declines Health/Prevention:Ex ercise: yes; Breast Self Exam: no; Seat Belt Use: yes; Safe Sex yes; Tobacco Use: no; Safe at home: yes; Mental Health Screen: abnormal; Has outside provider that manages mental health and meds. Mammogram:not applicable Pap Smear +/- HPV Cotesting:due Thyroid/Lipid Screening: Colonoscopy:not applicableNotes:She believes she is up to date on her gardasil vaccines. ADORE ANTONIO [id number] [facility],[address], [place], [address], [place] [facility] 06/30/2023 15:39:41 OBGyn Episode No OBEpisode recorded.
--- OUTSIDE RECORDS SUMMARY | 2024-11-14 16:00 | XMS_ITS | Encounter Summary ---
Author Organization [facility] Address [address] [place], [place] [address] [address] Care Team Providers Care Paper And Prints Restorer Name Role Phone Sarah Suazo MD Primary Care Provider [phone] Sarah Suazo MD Unavailable [phone] Encounter Details Date Type Department Care Team (Late st Contact Info) Description 06/15/2019 Records - [facility] CONVERSION Scan, Non-Provider Social History Tobacco Use Types Packs/Day Years Used Date Smoking Tobacco: Never Smokeless Tobacco: Never PHQ-2 Answer Date Recorded PHQ-2 Score 1 10/29/2018 Comments No Sex and Gender Information Value Date Recorded Sex Assigned at Not on file Legal Sex Female 2:41 PM 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
--- OUTSIDE RECORDS SUMMARY | 2024-11-14 16:00 | XMS_ITS | Encounter Summary ---
Author Organization [facility] Address [address] [place], [place] [address]. 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
[2024-11-14 16:14] VITALS: BP 168/91; PULSE 113; RESP 20; TEMP 36.8; O2SAT 97; BMI 39.5
--- NOTE | 2024-11-14 16:19 | ED.GENADULT ---
HPI - General Adult General Chief complaint: Allergic Reaction Stated complaint: rash and cough Time Seen by Provider: 11/14/24 16:06 History of Present Illness HPI narrative: This 24-year-old female comes in reporting hives that began last evening. Two states that she had a small spot on each arm and today it has progressed and migrated around various parts of her body. She states that it is itchy. She has also developed a mild cough. She arrives here with normal vital signs. She has not had any fevers. She states that she did take Benadryl. Related Data Home Medications ?Medication ?Instructions ?Recorded ?Confirmed multivitamin 1 tab PO QAM 05/15/23 05/15/23 norethindrone 1 mg-ethinyl 1 tab PO DAILY 05/15/23 05/15/23 estradiol 10 mcg (24)-iron 10 mcg(2) tablet (Lo Loestrin Fe) Previous Rx's ?Medication ?Instructions ?Recorded triamcinolone acetonide 0.1 % 1 applic topical BID #30 grams 11/14/24 topical cream Allergies Allergy/AdvReac Type Severity Reaction Status Date / Time Sulfa (Sulfonamide Allergy Verified 11/14/24 16:14 Antibiotics) Review of Systems Status of ROS: Reports: 10 or more systems reviewed and unremarkable except as noted in History and below Narrative: Constitutional: No fevers, no weight gain or loss. Eyes: No discharge. No vision changes. HENT: No congestion, no sore throat, no ear pain. Cardiovascular: No chest pain, no palpitations. Respiratory: No shortness of breath, no wheezes, no cough. Gastrointestinal: No abdominal pain, no vomiting, no diarrhea. Genitourinary: No dysuria, no hematuria. Musculoskeletal: Normal range of motion. Skin: Hives with pruritus. Neurological: No dizziness, weakness, sensory change, speech change. Endo/Heme/Allergies: No bruising or bleeding. No polydipsia. Pysch: no suicidality, no anxiety, no insomnia. All other systems reviewed and are negative. [facility] Medical History No significant past medical history Surgical History No significant past surgical history Social History Smoking Status: Never smoker Do you use any of these nicotine containing products: None Second hand tobacco smoke exposure: No How often do you have a drink containing alcohol: never How often do you have six or more drinks on one occasion: Never AUDIT-C Alcohol total score: 0 Non-prescribed substance use: denies use service: No Exam Narrative: Exam Narrative: Constitutional: Well-developed, well-nourished, no acute distress. HEENT: Normocephalic, atraumatic. Neck: Normal range of motion. Nontender. Supple. Heart: Regular. No murmurs. Normal rate. Intact distal pulses. Lungs: Clear to auscultation. No chest discomfort. No wheezes, rhonchi, or rales. Abdomen: Normal bowel sounds. Nontender. No rebound tenderness. Genitalia: Deferred. Back: No midline tenderness. Normal range of motion. Extremities: Normal range of motion. No injury. Skin: Intact. Scattered hives. Warm. No erythema or pallor. Neurologic: No altered sensation. No weakness. Alert and oriented. Psychiatric: No suicidality. No anxiety or depression. No insomnia. Nursing notes and vitals signs are reviewed. Const: Vital Signs, click to edit/add: Vital Signs - 24 hr 11/14/24 16:14 Temperature 98.2 F Pulse Rate [Pulse Oximeter] 113 H Respiratory Rate 20 Blood Pressure [Ri ght Forearm] 168/91 H Pulse Oximetry 97 Oxygen Delivery Me thod Room Air Course Vital Signs Vital signs: Initial Vital Signs Temperature 98.2 F 11/14/24 16:14 Temperature Source Temporal Artery Scan 11/14/24 16:14 Pulse Rate 113 H 11/14/24 16:14 Pulse Rhythm Regular 11/14/24 16:14 Respiratory Rate 20 11/14/24 16:14 Blood Pressure 168/91 H 11/14/24 16:14 Blood Pressure Mean 116 H 11/14/24 16:14 Blood Pressure Position High-Fowlers 11/14/24 16:14 Pulse Oximetry 97 11/14/24 16:14 Oxygen Delivery Method Room Air 11/14/24 16:14 Vital Signs Temperature 98.2 F 11/14/24 16:14 Pulse Rate 113 H 11/14/24 16:14 Respiratory Rate 20 11/14/24 16:14 Blood Pressure 168/91 H 11/14/24 16:14 Pulse Oximetry 97 11/14/24 16:14 Oxygen Delivery Method Room Air 11/14/24 16:14 Temperature 98.2 F 11/14/24 16:14 Pulse Rate 113 H 11/14/24 16:14 Respiratory Rate 20 11/14/24 16:14 Blood Pressure 168/91 H 11/14/24 16:14 Pulse Oximetry 97 11/14/24 16:14 Oxygen Delivery Method Room Air 11/14/24 16:14 Medical Decision Making MDM Narrative Medical decision making narrative: This patient is reporting hives as described above. It is unclear what might be triggering this as usually is the case. She does have a cough and it may be a viral syndrome that includes this rash. The patient did take Benadryl last evening. I recommended antihistamines as directed. She did receive an oral dose of dexamethasone 10 mg. I also provided a prescription for triamcinolone cream. Discharge Plan Discharge Clinical Impression: Allergic reaction, Urticaria Patient Disposition: Home, Self-Care Condition: Stable Additional Instructions: Use iorf-kqh-[id number] antihistamine medications as needed and directed. Apply steroid cream as directed to affected areas. Follow up with MD return if worsening. Prescriptions: New triamcinolone acetonide 0.1 % cream 1 applic topical BID Qty: 30 0RF No Action Lo Loestrin Fe 1 mg-10 mcg (24)/10 mcg (2) tablet 1 tab PO DAILY multivitamin Tablet 1 tab PO QAM Follow Up/Referrals: Wojciech Suazo MD [Primary Care Provider] - Stand Alone Forms: [employer] Info Instructions
[2024-11-14 16:32] VITALS: BP 154/88; PULSE 108; RESP 18; O2SAT 97
[2024-11-14 17:02] VITALS: BP 139/86; PULSE 113; RESP 16; O2SAT 97
[2024-11-14] MEDS: dexAMETHasone 10 MG/ML inj PO (17:30)
[2024-11-14 17:31] VITALS: BP 139/92; PULSE 102; RESP 14; O2SAT 98
[2024-11-14 17:46] VITALS: BP 168/91; PULSE 113; RESP 20; TEMP 36.8
== END 2024-11-14 17:46 | disposition home or self-care (01) ==
LOC: ED 17:24
PROVIDERS: Emergency Provider Emergency Medicine Emergency Medical Services
DX: L50.9 Urticaria, unspecified (principal); T78.40XA Allergy, unspecified, initial encounter
CPT/HCPCS: 99283; 99284; J1100

== ENCOUNTER 2025-05-01 07:26 | Emergency (ER) | payer OTHER, SELFPAY ==
--- OUTSIDE RECORDS SUMMARY | 2025-05-01 07:27 | XMS_ITS | Encounter Summary ---
Author Organization [place] Address [address] [place] [address]. 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
--- OUTSIDE RECORDS SUMMARY | 2025-05-01 07:27 | XMS_ITS | Encounter Summary ---
Author Organization [facility] Address [address] [place] [address]. 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
--- OUTSIDE RECORDS SUMMARY | 2025-05-01 07:27 | XMS_ITS | Encounter Summary ---
Author Organization [place] Address [address] [place] [address]. 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
--- OUTSIDE RECORDS SUMMARY | 2025-05-01 07:28 | XMS_ITS | Patient Health Record ---
Author Organization [facility] Address [address] [place] [address] Support Name Relationship Address Phone Eneida Villaseñor Guarantor Unknown [phone] Reason For Referral No Information Problems Problem Type SNOMED Code ICD Code Onset Dates Problem Status W/U Status Risk Notes Problem Chronic tonsillitis (41680953) Chronic tonsillitis (J35.01) Active confirmed Problem Tonsillar hypertrophy (J35.1) Active confirmed Plan Of Treatment No Information Medical (General) History Surgical History Surgery Date(Month/Year) Tonsillectomy DC 09/19/2017
--- OUTSIDE RECORDS SUMMARY | 2025-05-01 07:28 | XMS_ITS | Clinical Summary ---
Author Organization [facility] Address [address] [place] [address] Care Team Providers Care Automotive Manager Name Role Phone Sarah Suazo MD Primary Care Provider + Allergies Active Allergy Reactions Criticality Noted Date Comments Sulfa (Sulfonamide Antibiotics) Throat Swelling/Closing High 06/01/2017 Medications norethindrone-e. estradioL-iron (LO LOESTRIN FE) 1 mg-10 mcg (24)/10 mcg (2) tab Take 1 Tab by mouth. 09/30/2016 Active cyclobenzaprine (FLEXERIL) 10 mg tabletIndication s:Back strain, initial encounter Take 1 Tablet (10 mg) by mouth 3 times daily. 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 12/30/2016 Immunizations Immunization Administration Dates Next Due DTaP 09/14/2003 HDjY-QzsB-VHI (Pediarix) 2002,2002,1 10/24/2001 DTaP-IPV (Kinrix) 06/13/2006 HIB PRP-T (ActHIB,Hiberix) 09/14/2003,,2002,2001 Hepatitis A (Peds) 06/04/2011 MMRV 06/13/2006,06/10/2003 Pneumococcal conj 7-Valent ( Prevnar 7) 06/10/2003,02/12/2003,2002 Tdap 12/20/2020 Family History Medical History Relation Name Comments Unknown Father Hypertension Maternal Grandfather Arthritis Maternal Grandmother Diabetes Maternal Grandmother Hypertension Maternal Grandmother Other Maternal Grandmother neurolo gic issues Alcohol/Drug Mother Other Mother epilepsy and he p c Psychiatric illness Mother Unknown Mother Relation Name Status Comments Father Maternal Grandfather Maternal Grandmother Mother Social History Tobacco Use Types Packs/Day Years Used Date Smoking Tobacco: Never Smokeless Tobacco: Never Alcohol Use Standard Drinks/Week Comments No 0 (1 standard drink = 0.6 oz pur e alcohol) Comments No Sex and Gender Information Value Date Recorded Sex Assigned at Not on file Legal Sex Female 8:12 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 Gender Identity Not on file Sexual Orientation Not on file Occupation Industry Job Start Date Job End Date student Not on file Not on file Not on file Obstetrics History Para Term AB IAB SAB Ectopic Multiple Livin g Live Births 0 0 0 0 0 0 0 0 0 0 Last Filed Vital Signs Vital Sign Reading Time Taken Comments Blood Pressure 132/94 04/19/2022 2:55 PM CDT Pulse 86 04/19/2022 2:55 PM CDT Temperature 36.2 C (97.1 F) 04/19/2022 2:55 PM CDT Respiratory Rate 14 04/19/2022 2:55 PM CDT Oxygen Saturation 97% 04/19/2022 2:55 PM CDT Inhaled Oxygen Concentration - - Weight 104.3 kg (230 lb) 04/19/2022 2:55 PM CDT Height 172.7 cm (5' 8) 04/19/2022 2:55 PM CDT Body Mass Index 34.97 04/19/2022 2:55 PM CDT Plan of Treatment Health Maintenance Due Date Last Done Comments Depression screening for age 12+ 2014 HIV for age 15-65 2017 HPV series for age 9-26 (1 - 3-dose series) 2017 BMI (ht and wt on same day) for age 18+ 2020 Hepatitis C screening for ag e 18-79 2020 Pap test for age 21-65 2023 COVID-19 vaccine series ( season) 2024 01/28/2022, 02/24/2021, 02/03/2021 Influenza Vaccine (#1) 2025 Tetanus booster 12/20/2030 12/20/2020 Hepatitis B series for 19+ Completed 12/14, 2002, 2002 Pneumococcal series for age 6-49 Aged Out 06/10/2003, 02/12/2003, 2002 No longer eligible based on patient's age to complete this topic Insurance avVenta av[employer]enta [id number] [place] [address] [facility] * Guarantor: GIUSEPPE VILLASEÑOR Account Type Relation to Patient Date of Phone Billing Address Personal/Family Grandfather Care Teams Automotive Manager Relationship Specialty Start Date End Date Sarah Suazo MD PCP - General Family Practice 01/06/20
--- OUTSIDE RECORDS SUMMARY | 2025-05-01 07:28 | XMS_ITS | Data Portability ---
Author Organization [facility], [id number] Address [address] [place] [address] Care Team Providers Care Pet Care Associate Name Role Phone SARAH BRYANT Primary Care [...] patient and/or caregiver regarding health maintenance recommendations [email or web address] Not available 05/13/2022 12:20:08 Plan of Treatment Reminders Order Date Submit Date Provider Last Modified By Organization Details Last Modified Time Details Appointments None recorded. Lab Pap test, slide(s), cervical [address], [id number], [place], [address], 3 13:12:25 CT + NG DNA, PCR, urine 2020 021 [facility], [address], [place], [address], 13:02:14 Referral None recorded. Procedures None recorded. Surgeries None recorded. Imaging None recorded. Medication Orders Lo Loestrin Fe 1 mg-10 mcg (24)/10 mcg (2) tablet [address] [facility][id number], [address] [place], [place], [id number], 3 14:17:56 Lo Loestrin Fe 1 mg-10 mcg (24)/10 mcg (2) tablet [address] [facility] #48450, [address] [place], [place], [id number], 2 13:07:34 Lo Loestrin Fe 1 mg-10 mcg (24)/10 mcg (2) tablet [address] [facility] #[id number], [address] [place], [place], [id number], 1 01:30:44 Patient TargetsNo targets recorded. Patient InstructionsNo instructions recorded. Reason for Referral None Reported. Results Created Date Observation Date Name Description Value Unit Range Abnormal Flag Note LastModifiedBy Organization Detail LastModifiedTime 06/01/20 21 06/01/2021 CHLAM YDIA/ NEISS ERIA PCR-U RINE chlam. amp. Negati ve for the presen ce of Chlamy andres tracho matis DNA by PCR. negati ve Not Available [facility] [address] [place], [address], 06/04/2021 13:02:14 06/01/20 21 06/01/2021 CHLAM YDIA/ NEISS ERIA PCR-U RINE neis. amp. Negati ve for the presen ce of Neisse cheri gonorr hoeae DNA by PCR. negati ve Not Available [facility] [address] [place], [address], 06/04/2021 13:02:14 09/1806/30/2023 GYNEC OLOGI C CYTOL OGY (PAP SMEAR ) gynecologic cytology SEE RESULT S BELOW SPECI MEN SOURC E [place] ing Cervi x BKR LAB AP WOOD REPATCHER INTER PRETA TION: Negat fortino for Intra epith elial Lesio n or Odell goldberg (NILM ) Elect meri celeste vania d by Gardenia steele, Hitesh E, CT (ASCP ) on 2022 at 12:10 PM Path repor t.com ments Imp Spec: Papan icola ou [...] or other cance rs. BKR LAB AP WOOD REPATCHER ADEQU ACY: Satis facto ry for evalu [...] this testi ng was compl eted at [facility] Not Available [address], [place], [address], 07/03/2023 13:12:25 Result Notes None recorded. Problems Name Problem SNOMED Code Status Onset Date Resolution Date Notes Provider Name and Address Organization Details Recorded Time Anxiety 00713903 Active Zachary Riser (TERMED) null, [place] [facility] 15:15:31 Depressive disorder 96873952 Active Zachary Riser (TERMED) null, [place] [facility] 15:15:43 Constipati on 16673903 Active Zachary Riser (TERMED) null, [facility] 15:15:48 Menometror rhagia 865343863 Active Zachary Riser (TERMED) null, [facility] 15:16:05 Migraine 07929061 Active Zachary Riser (TERMED) null, [facility] 15:16:10 Degenerati ve disorder 195920665 Active Disc. Dr. Edwards with [place] in ST[facility] Zachary Riser (TERMED) null, [facility] 15:19:03 Problem Notes None recorded. Procedures Surgical History Date Name Laterality Status Provider Name and Address Organization Details Recorded Time [address] [facility] 06/01/2021 11:12:52 Imaging Results None recorded. Procedure Notes None recorded. Medical Equipment None Reported. Allergies Allergen ID Allergen Name Allergen Category Reaction Reaction Severity Criticality Documentation Date Start Date Code Code System Note Provider Name and Address Organization Details Recorded Time buspirone medicatio n palpitati ons Not available Not available 06/01/2021 1827 RxNorm hyper tensi on [facility] 11:15:37 83164 Substance with sulfonami de structure and antibacte rial mechanism of action (substanc e) medicatio n Not available Not available Not available 05/18/2020 28435 8003 SNOMED Rash / Hives , Itchy Eyes, Stuff y nose, Cough ing, D [facility] 11:08:34 Medications Name Sig Start Date Stop [...] No t Available Vitals Date Recorded Body height Body mass index (BMI) [Percentile] Per age and sex Body mass index (BMI) Body weight Systolic And Diastolic Provider Name and Address Organization Details Last Updated DateTime 05/13/2022 172.72 cm 97 % 36.3 kg/m2 546808. 58 g 104/76 mm[Hg] Candida Duong [facility] 2 11:38:30 Date Recorded Body weight Body mass index (BMI) [Percentile] Per age and sex Body mass index (BMI) Body height Systolic And Diastolic Provider Name and Address Organization Details Last Updated DateTime 06/01/2021 061452.3 9 g 98 % 36 kg/m2 172.72 cm 116/82 mm[Hg] Candida Duong [facility] SPECIAL[facility] 1 11:14:08 Date Recorded Body weight Body mass index (BMI) Body height Systolic And Diastolic Provider Name and Address Organization Details Last Updated DateTime 06/30/2023 830392.61 g 39.7 kg/m2 172.72 cm 120/86 mm[Hg] Sarah Dasilva [facility] SPECIAL[facility] 06/30/2023 14:04:24 Social History Question Answer Notes LastModified by Organizat ion Details LastModified Time Tobacco Smoking Status Never Smoker Candida amos [facility] 06/01/2021 11:09:19 Do You Have An Advance [...] ion Details LastModified Time What is your level of alcohol consumption? None Information not available 06/01/2021 What is your exercise level? Occasional Information [...] Not available 2020 11:08:46 Unspecified Relation Malignant neoplasm of ovary 49 Great Matern al Aunt Not available 06/01/2021 11:08:46 Unspecified Relation Malignant neoplasm of ovary 72 Great Matern al Grandm [...] Disorder Y Ortho-Other Y Psych- Depression Y Ortho-Chronic Back Pain Y Neurology- Headaches/Migraines Y Gynecological History Statement/Question Response Sexually Active [...] SNOMED-CT Code Diagnosis ICD10 Code Diagnosis Note [id number] BURKE ELKINS PA-C [id number] MELECIO ToroBEAMAVE [address] [facility] [place] [address] 06/01/2021 10:55:08 06/04/2021 10:54:56 Contraception care management 029968310 Z30.9 Gynecologi c examination 44916040 Z01.419 - RTC in one year for annual exam. Venereal d isease screening 242954721 Z11.3 [id number] Belkys Mcdonough DO [id number] MELECIO SCHAEFERBUR Y [address] [facility] [address] [place] [address] 05/13/2022 11:12:06 05/13/2022 15:34:46 Irregular periods 81715629 N92.6 Contracept ion care management 259859810 Z30.9 [id number] MIHAELATRISH BOLIVARADORE [id number] MELECIO WELCH Y [address] [place] [address] 06/30/2023 13:48:49 06/30/2023 15:28:44 Contraception care management 262242785 Z30.9 Routine gy necologic examination done 7948148459 9101 Z01.419 Screening for malignant neoplasm of cervix 398561951 Z12.4 Health Concerns Section Related Observation LastModified by Organization Detai ls LastModified Time None Recorded Concern Status LastModified by Organization Details LastModified Time None Recorded Advance Directives Directive N: Payers None recorded. Notes Date Note Type Note Provider Name [...] exam and control refill. BURKE ELKINS PA-C [id number] [facility],[address], [place], [address], [place] [facility] 06/02/2021 01:33:51 05/13/2022 text/html Abnormal Bleedin g ([facility])Reported bypatient.Patient Relationship with Practice:established patient Presents for:a [...] Pain was so intense, she had to wool puller [address] to the ED. Was given Toradol in the ED. US performed revealed normal findings and PCOS. She has been tolerating this birthcontrol very well. Denies missing a pill or taking any other medications [place] [address] [address] [facility],[address], [place], [address], [place] [facility] 05/13/2022 12:20:47 06/30/2023 text/html Annual Premenopa usal [...] date on her gardasil vaccines. ADORE ANTONIO [address] [address] [facility],[address], [place], [address], [place] [facility] 06/30/2023 15:39:41 OBGyn Episode No OBEpisode recorded.
--- OUTSIDE RECORDS SUMMARY | 2025-05-01 07:28 | XMS_ITS | Clinical Summary ---
Author Organization [facility] Address [address] [place] [address]. [place] [address] Care Team Providers Care Wool Hat Flanger Name Role Phone Sarah Suazo MD Primary Care Provider [phone] Sarah Suazo MD Unavailable [phone] Allergies Active Allergy Reactions Criticality Noted Date [...] Conversion disorder with attacks or seizures Immunizations Immunization Administration Dates Next Due COVID-19 12+ (Pfizer) 08/07/2023 COVID-19 MONOVALENT 12+ (Pfizer) 02/24/2021,042 01/2021 COVID-19 Monovalent 12+ (Pfizer 2021) 01/28/2022 DTAP (<7y) 06/13/2006, 3,2002,10/15,2002 HIB, Unspecified 09/14/2003, 3,2002,08/24 HPV Quadrivalent 07/12/2014,05/09/2014 HPV9 (Gardasil) 07/25/2015 HepB, Unspecified 2002,2002 Hepatitis A (VAQTA)(ADULT 19+) 05/09/2014 Hepatitis A (Vaqta/Havrix)(P eds 12m-18y) 06/04/2011 Hepatitis B, Adult (Energix-B/Recombivax HB) 2002 Hepatitis B, Peds (Engerix-B/Recombivax HB) 2002 Influenza Vaccine >6 months,quad, PF ,08/19/2022,07/26/2021,07/04,09/12/2017,06/28/2016 Influenza Vaccine, 6+MO IM (QUADRIVALENT W/PRESERVATIVES) 08/10/2019,06/16/2018,09/12/2017,06/28 MMR (MMRII) 06/13/2006,06/10/2003 Meningococcal ACWY (Menveo ) 05/09/2014 OPV, trivalent, live 03/11/2003,2002 Pneumococcal (PCV 7) 06/10/2003,02/12/2003,08/24 Poliovirus, inactivated (IPV) 06/13/2006, 003,2002 TDAP (Adacel,Boostrix) 12/20/2020 TDAP Vaccine (Adacel) 05/09/2014 Varicella (Varivax) 06/13/2006,06/10/2003 Family History Medical History Relation Comments [...] on file 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 Gender Identity Not on file Sexual [...] PLAN 2002 HIV SCREENING 2017 MENINGITIS B VACCINE (1 of 2 - Standard) 2018 HEPATITIS C SCREENING 2020 CHLAMYDIA SCREENING 05/03/2023 05/03/2022, 06/01/2021, 06/22/2019, Additional history exists ANNUAL REVIEW OF HM ORDERS 10/29/2023 10/29/2022 PHQ-9 12/04/2023 06/03/2023, 10/13, 03/15/2021, Additional history exists COVID-19 VACCINE ( season) 2024 08/07/2023, 01/28/2022, 02/24/2021, Additional history exists YEARLY PREVENTIVE VISIT 06/30/2024 06/30/20 23, 06/01/2021, 06/01/2021, Additional history exists INFLUENZA VACCINE (#1) 2025 , 08/19/2022, 07/26/2021, Additional history exists PAP 06/30/2026 06/30/2023 DTAP/TDAP/TD VACCINE (8 - Td or Tdap) 12/20/2030 12/20/2020, 05/09/2014, 06/13/2006, Additional history exists ZOSTER VACCINE (1 of 2) 2052 HEPATITIS B VACCINE Completed 2002, 2002, 2002, Additional history exists PNEUMOCOCCAL VACCINE: PEDIATRICS (0 to 5 YEARS) AND AT-RISK PATIENTS (6 to 49 YEARS) Aged Out 06/10/2003, 02/12/2003, 2002 No longer eligible based on patient's age to complete this topic MENINGITIS VACCINE Aged Out 05/09/2014 No longer eligible based on patient's age to complete this topic HPV VACCINE Completed 07/25/2015, 06/15, 05/09/2014 Procedures Procedure Name Priority Date/Time Associated Diagnosis [...] (NILM) 07/03/2023 12:10 PM CDT SPECIALTY LABS at 1210 CDT Comment Papanicolaou Test Limitations: Cervical cytology is [...] component of this testing was completed at [facility] 07/03/2023 12:10 PM CDT [facility] Brushing CERVIX UTERI STRUCTURE / Unknown 06/30/2023 3:25 PM CDT 06/30/2023 9:43 PM CDT Nuha Nunn APRN ELECTRICAL POWER STATION TECHNICIAN LAB - [facility] AP Final Result SPECIALTY LABS Specialty Lab [address] [facility], [address] [place] [address], [facility] [phone] * PHQ-9 DEPRESSION SCREENING ORDER (06/03/2023) PHQ9 SCORE 16 Narrative Kenna Varela - 06/03/2023 PSYCHIATRIC ASSESSMENT [facility] Behavioral us Provider Outside OTHER Final Result * Chlamydia trachomatis PCR (05/03/2022 6:09 AM CDT) Chlamydia trachomatis Negative Negative 05/04/2022 1:08 PM CDT [facility] Comment:A negative result by patient safety attendant mediated amplification does not preclude the presence of C. trachomatis infection because results are dependent on proper and adequate collection, absence of inhibitors and sufficient rRNA to be detected. Swab VOIDED URINE SPECIMEN / Unknown Non-blood Collection / Unknown 05/03/2022 6:09 AM CDT 05/03/2022 7:25 AM CDT us Balbir Greene MD LAB - MICRO GENERAL ORDERABLES F inal Result [facility] Inf. Diseases Diag. Lab [address] [facility], [address] [place] [address], [facility] [phone] from Last 3 Months or Most Recently Relevant to Health Maintenance Advance Directives For more information, please contact: [phone] * Full Code (Latest Code Status on File) Date Activated Date Inactivated Comments 03/24/2023 12:59 AM 03/24/2023 2:42 PM All basic a nd advanced life-sustaining interventions are performed as appropriate Question Answer Comments Code status determined by: Discussion with patie nt/ legal decision maker Care Teams Wool Hat Flanger Relationship Specialty Start Date End Date Sarah Suazo MD PCP - General Family Practice 11/05/17 Sarah Suazo MD [address] [facility] [address] [address] Assigned PCP 03/28/21
[2025-05-01 07:40] VITALS: BP 162/99; PULSE 87; RESP 18; TEMP 37; O2SAT 98; BMI 41.1
--- NOTE | 2025-05-01 08:23 | ED.BACK ---
HPI - Back Pain/Injury General Time Seen by Provider: 08:04 Date Seen: 05/01/25 Chief Complaint: Back Injury/Pain Stated Complaint: back pain Time Seen by Provider: 05/01/25 08:01 Source: patient, RN notes reviewed and old records reviewed Mode of arrival: ambulatory Limitations: no limitations History of Present Illness HPI Narrative: Eneida is a 24-year-old female with history of chronic back pain, having done physical therapy in the past and a failed injection who comes to the emergency room for evaluation regarding new back pain. Pain occurred suddenly when she bent over to zip up a Cat door. She notes she had the sudden onset of pain in her low back radiating around her left buttock into her left thigh. She notes that it is difficult to walk because of the pain. She notes that standing and sitting hurts the most. No loss of bowel or bladder control. No perineal numbness. Unfortunately, patient has had issues with chronic back pain since she was a teenager. She has undergone physical therapy and states that does not help her. She notes that she did receive would injection-unsure which facility in the [facility]-but she thinks that was done wrong and actually made her pain worse. Denies possibility of as she is currently menstruating. Related Data Home Medications ?Medication ?Instructions ?Recorded ?Confirmed norethindrone 1 mg-ethinyl 1 tab PO DAILY 05/15/23 05/01/25 estradiol 10 mcg (24)-iron 10 mcg(2) tablet (Lo Loestrin Fe) Previous Rx's ?Medication ?Instructions ?Recorded cyclobenzaprine 10 mg tablet 10 mg PO TID PRN muscle spasm #30 05/01/25 tabs ketorolac 10 mg tablet 10 mg PO Q8H PRN pain #15 tabs 05/01/25 methylprednisolone 4 mg tablets in See Rx Instructions PO .COMPLEX 05/01/25 a dose pack (Medrol (Joseph)) #21 ea Allergies Allergy/AdvReac Type Severity Reaction Status Date / Time Sulfa (Sulfonamide Allergy Verified 05/01/25 07:43 Antibiotics) Review of Systems Status of ROS: Reports: 6 or more systems reviewed and unremarkable except as noted in History and below Const: Denies: fever : Denies: urinary incontinence Musculo: Reports: back pain, extremity pain and limited range of motion PFSH PFSH Medical History No significant past medical history Surgical History No significant past surgical history Social History Smoking Status: Never smoker Do you use any of these nicotine containing products: None Second hand tobacco smoke exposure: No How often do you have a drink containing alcohol: never How often do you have six or more drinks on one occasion: Never AUDIT-C Alcohol total score: 0 Non-prescribed substance use: denies use service: No Exam Narrative: Exam Narrative: Patient is alert and oriented. No respiratory distress. Palpation down lumbar spine superior posterior iliac crest or buttocks does not yield discomfort. Patient is able to stand but slowly. She has forward motion to approximately 15?. Extension is much less painful and is to approximately 12?. Patient has full lower extremity strength and motor. DTRs at the knees are less than 1+. Flexion extension at the knees ankles great toe all within normal limits. Sensation is fully intact. Const: Vital Signs, click to edit/add: Vital Signs - 24 hr 05/01/25 07:40 05/01/25 08:58 Temperature 98.6 F Pulse Rate [Right Pulse Oximeter] 87 85 Respiratory Rate 18 Blood Pressure [Ri ght Forearm] 162/99 H Pulse Oximetry 98 99 Oxygen Delivery Me thod Room Air Room Air Documenting provider has reviewed patient's vital signs: yes Course Course ED Course: Differential diagnosis includes but is not limited to acute disc herniation, acute on chronic exacerbation of back pain, musculoskeletal pain, muscular strain. Given the fact that extension at the waist did not increase pain. No red flag symptoms today. Do not recommend any radiological studies. At this time a check of the SENIOR CONSULTANT does not show narcotics. Denies any possibility of and is currently menstruating. Will use Toradol 30 mg IM and morphine 8 mg IM for acute pain at this time. Would suggest the continued use of an NSAID, muscle relaxer and steroids going forward. Patient is in agreement with this plan. Vital Signs Vital signs: Initial Vital Signs Temperature 98.6 F 05/01/25 07:40 Temperature Source Temporal Artery Scan 05/01/25 07:40 Pulse Rate 87 05/01/25 07:40 Pulse Rhythm Regular 05/01/25 07:40 Pulse Strength 3+ Normal 05/01/25 07:40 Respiratory Rate 18 05/01/25 07:40 Blood Pressure 162/99 H 05/01/25 07:40 Blood Pressure Mean 120 H 05/01/25 07:40 Blood Pressure Position Sitting 05/01/25 07:40 Pulse Oximetry 98 05/01/25 07:40 Oxygen Delivery Method Room Air 05/01/25 07:40 Vital Signs Temperature 98.6 F 05/01/25 07:40 Pulse Rate 87 05/01/25 07:40 Respiratory Rate 18 05/01/25 07:40 Blood Pressure 162/99 H 05/01/25 07:40 Pulse Oximetry 98 05/01/25 07:40 Oxygen Delivery Method Room Air 05/01/25 07:40 Temperature 98.6 F 05/01/25 07:40 Pulse Rate 85 05/01/25 08:58 Respiratory Rate 18 05/01/25 07:40 Blood Pressure 162/99 H 05/01/25 07:40 Pulse Oximetry 99 05/01/25 08:58 Oxygen Delivery Method Room Air 05/01/25 08:58 Medications Administered Medications: Discontinued Medications Generic Name Dose Route Start Last Admin Trade Name Gi PRN Reason Stop Dose Admin Ketorolac Tromethamine 30 mg 05/01/25 08:24 05/01/25 08:38 Ketorolac 30 Mg/Ml Inj IM 05/01/25 08:25 30 mg ONCE ONE Administration Morphine Sulfate 8 mg 05/01/25 08:24 05/01/25 08:38 Morphine 10 Mg/Ml Inj IM 05/01/25 08:25 8 mg ONCE ONE Administration MDM - Back Pain/Injury MDM Narrative Medical decision making narrative: 1. Low back strain-patient has some very mild radicular symptoms. I think this is more of a strain than a true disc herniation given her exam here today. She did have relief with the Toradol and morphine. Will be discharging her home on Toradol 10 mg p.o. t.i.d. p.r.n., 15. She is also going to be using Medrol Dosepak to start today. Finally, Flexeril 10 mg p.o. t.i.d. p.r.n. Number 30 is also sent to [facility]'s pharmacy. Did suggest use of omeprazole for stomach protection during the use of NSAIDs and steroids. Recommend light activity and avoiding prolonged rest. I heavily recommended follow-up with our back intensive care ambulance paramedic either here in [place] or at [place]. Patient tells me that the physical therapy did not work for her but clearly she is at risk given chronic back pain in activity and likely deconditioning. I did explain that this will likely happen again and again with minimal events. I understand how she is very frustrated as physical therapy has not helped her in the past but recommend strengthening for her lumbar spine. 2. Disposition-home at this time. Return for red flag symptoms such as perineal numbness, lower extremity weakness, loss of bowel or bladder control. Medical Records Attestation: I reviewed the patient's medical records. Discharge Plan Discharge Clinical Impression: Low back pain Patient Disposition: Home, Self-Care Condition: Improved Additional Instructions: Toradol 10 mg up to 3 times a day may be used for back pain. You will need to make sure you stay well hydrated if using this medication. If you do not feel that this medicine works for you, you may switch to ibuprofen or Aleve but do not take any of these medications together as they are all from the same family of medication called NSAIDs. Start Medrol Dosepak which is a steroid to help with any swelling. Both of the above medications can cause heartburn, GI upset. If you are using this medicines you may want to consider using omeprazole which is a medication to protect the stomach. One tablet daily. Flexeril is a muscle relaxer. You may use this if you are experiencing back spasms. Red recommend against driving or the use of alcohol if using this medicine. Follow-up with back intensive care ambulance paramedic: [facility] [phone], asks for back care physician's doctors Samantha or Bernice [facility]: Ask for back care physician's as above-they both work at both places. The phone number is [phone] Return to the emergency room for worsening symptoms such as loss of bowel or bladder control, inability to walk, numbness of your genital area. Ice to area of back (not on bare skin). Gentle stretching and activity. Prescriptions: New ketorolac 10 mg tablet 10 mg PO Q8H PRN (Reason: pain) Qty: 15 0RF Rx Instructions: maximum total duration of 5 days from all oral, intranasal, or parenteral formulations cyclobenzaprine 10 mg tablet 10 mg PO TID PRN (Reason: muscle spasm) Qty: 30 0RF methylprednisolone [Medrol (Joseph)] 4 mg tablets,dose pack See Rx Instructions .ROUTE .COMPLEX Qty: 21 0RF Rx Instructions: orally per package directions No Action Lo Loestrin Fe 1 mg-10 mcg (24)/10 mcg (2) tablet 1 tab PO DAILY Follow Up/Referrals: Provider,Not a Local [Primary Care Provider, Family Practice] Stand Alone Forms: MyHealth Info Instructions
[2025-05-01 08:58] VITALS: PULSE 85; O2SAT 99
== END 2025-05-01 08:59 | disposition home or self-care (01) ==
PROVIDERS: Emergency Provider Family Medicine
DX: S39.012A Strain of muscle, fascia and tendon of lower back, initial encounter (principal)
CPT/HCPCS: 96372; 99284; J1885; J2270

== ENCOUNTER 2025-05-19 04:44 | Emergency (ER) | payer OTHER, SELFPAY ==
--- OUTSIDE RECORDS SUMMARY | 2025-05-19 04:46 | XMS_ITS | Encounter Summary ---
Author Organization [facility] Address [address] [place] [address]. 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
--- OUTSIDE RECORDS SUMMARY | 2025-05-19 04:46 | XMS_ITS | Encounter Summary ---
Author Organization [facility] Address [address] [place] [address]. 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
--- OUTSIDE RECORDS SUMMARY | 2025-05-19 04:46 | XMS_ITS | Clinical Summary ---
Author Organization [facility] Address [address] [place] [address]. 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, [address] [place] [address], [facility] [phone] * PHQ-9 DEPRESSION SCREENING ORDER (06/03/2023) PHQ9 SCORE 16 Narrative Kenna Varela - 06/03/2023 PSYCHIATRIC ASSESSMENT [facility] Behavioral us Provider Outside OTHER Final Result * Chlamydia trachomatis PCR (05/03/2022 6:09 AM CDT) Chlamydia trachomatis Negative Negative 05/04/2022 1:08 PM CDT [facility] Comment:A negative result by clothing room supervisor mediated amplification does not preclude the presence of C. trachomatis infection because results are dependent on proper and adequate collection, absence of inhibitors and sufficient rRNA to be detected. Swab VOIDED URINE SPECIMEN / Unknown Non-blood Collection / Unknown 05/03/2022 6:09 AM CDT 05/03/2022 7:25 AM CDT us Balbir Greene MD LAB - MICRO GENERAL ORDERABLES F inal Result [facility] Inf. Diseases Diag. Lab [address] [facility], [address] [place] [address], [facility] [phone] from Last 3 Months or Most Recently Relevant to Health Maintenance Advance Directives For more information, please contact: [phone] * Full Code (Latest Code Status on File) Date Activated Date Inactivated Comments 03/24/2023 12:59 AM 03/24/2023 2:42 PM All basic a nd advanced life-sustaining interventions are performed as appropriate Question Answer Comments Code status determined by: Discussion with patie nt/ legal decision maker Care Teams Forge Operator Helper Relationship Specialty Start Date End Date Sarah Suazo MD PCP - General Family Practice 11/05/17 Sarah Suazo MD [address] [facility] [address] [address] Assigned PCP 03/28/21
--- OUTSIDE RECORDS SUMMARY | 2025-05-19 04:46 | XMS_ITS | Encounter Summary ---
Author Organization [facility] Address [address] [place] [address]. 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 [address] [address] Assigned PCP 03/28/21 documented as of this encounter
--- OUTSIDE RECORDS SUMMARY | 2025-05-19 04:46 | XMS_ITS | Patient Health Record ---
Author Organization [facility] Address [address] [place] [address] Support Name Relationship Address Phone Eneida Villaseñor Guarantor Unknown Reason For Referral No Information Problems Problem Type SNOMED Code ICD Code Onset Dates Problem Status W/U Status Risk Notes Problem Chronic tonsillitis (96431773) Chronic tonsillitis (J35.01) Active confirmed Problem Tonsillar hypertrophy (J35.1) Active confirmed Plan Of Treatment No Information Medical (General) History Surgical History Surgery Date(Month/Year) Tonsillectomy [place] 09/19/2017
--- OUTSIDE RECORDS SUMMARY | 2025-05-19 04:46 | XMS_ITS | Clinical Summary ---
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
[2025-05-19 04:48] VITALS: BP 145/84; PULSE 99; RESP 16; TEMP 36.8; O2SAT 97; BMI 39.5
--- NOTE | 2025-05-19 04:55 | ED.EYEPROB ---
HPI - Eye Problem General Time Seen by Provider: 04:55 Date Seen: 05/19/25 Chief complaint: Eye Problems Stated complaint: L eye swollen/headache Time Seen by Provider: 05/19/25 04:55 Source: patient Mode of arrival: ambulatory History of Present Illness HPI Narrative: Eneida is a 24-year-old female with no significant past medical history who presents the emergency department for evaluation of left eye pain. Patient states that just going to bed last night she had a little bit of itching to her left night but did not think anything of it because of her allergies. Patient states that she woke up with discomfort to her left eye as well as swelling to her left eye. Patient states left eye is itching, swelling, and she feels some pressure around her eye. Patient reports some sinus congestion and seasonal allergies but did not take any medications for this. Patient denies any vision changes, no specific eye pain, no fever, chills, nausea, vomiting. Patient reports headache but does report history of migraines. No other complaints. Related Data Home Medications ?Medication ?Instructions ?Recorded ?Confirmed norethindrone 1 mg-ethinyl 1 tab PO DAILY 05/15/23 05/19/25 estradiol 10 mcg (24)-iron 10 mcg(2) tablet (Lo Loestrin Fe) Allergies Allergy/AdvReac Type Severity Reaction Status Date / Time Sulfa (Sulfonamide Allergy Verified 05/19/25 04:51 Antibiotics) Review of Systems Narrative: Past medical history, past surgical history, medications, allergies, family history, and social history were reviewed with the patient. No additional pertinent items. A medically appropriate review of systems was performed with pertinent positives and negatives noted in HPI, all other systems negative. [facility] Medical History No significant past medical history Surgical History No significant past surgical history Social History Smoking Status: Never smoker Do you use any of these nicotine containing products: None Second hand tobacco smoke exposure: No How often do you have a drink containing alcohol: never How often do you have six or more drinks on one occasion: Never AUDIT-C Alcohol total score: 0 Non-prescribed substance use: denies use service: No Exam Narrative: Exam Narrative: General: Afebrile, no acute distress HEENT: Normocephalic, atraumatic, Left eye: small amount of discharge in the medial aspect upper eye with periorbital swelling, mild erythema. Conjunctiva with mild erythema, pupils equal, round, reactive to light. Extraocular movements are intact in patient with no pain during extraocular movements, MMM Neck: non-tender, supple Cardio: regular rate. regular rhythm Resp: Normal work of breathing, no respiratory distress, lungs clear bilaterally, no wheezing, rhonchi, rales Chest/Back: no visual signs of trauma, no midline tenderness, no CVA tenderness Abdomen: soft, non distension, no tenderness, no peritoneal signs Neuro: alert and fully oriented. CN II-XII grossly intact. Grossly normal strength and sensation in all extremities. MSK: no deformities. Normal range of motion Integumentary/Skin: no rash visualized, normal color Psych: normal affect, normal behavior Const: Vital Signs, click to edit/add: Vital Signs - 24 hr 05/19/25 04:48 Temperature 98.3 F Pulse Rate [Pulse Oximeter] 99 Respiratory Rate 16 Blood Pressure [Ri ght Upper Arm] 145/84 H Pulse Oximetry 97 Oxygen Delivery Me thod Room Air Course Vital Signs Vital signs: Initial Vital Signs Temperature 98.3 F 05/19/25 04:48 Temperature Source Temporal Artery Scan 05/19/25 04:48 Pulse Rate 99 05/19/25 04:48 Respiratory Rate 16 05/19/25 04:48 Blood Pressure 145/84 H 05/19/25 04:48 Blood Pressure Mean 104 05/19/25 04:48 Blood Pressure Position Sitting 05/19/25 04:48 Pulse Oximetry 97 05/19/25 04:48 Oxygen Delivery Method Room Air 05/19/25 04:48 Vital Signs Temperature 98.3 F 05/19/25 04:48 Pulse Rate 99 05/19/25 04:48 Respiratory Rate 16 05/19/25 04:48 Blood Pressure 145/84 H 05/19/25 04:48 Pulse Oximetry 97 05/19/25 04:48 Oxygen Delivery Method Room Air 05/19/25 04:48 Temperature 98.3 F 05/19/25 04:48 Pulse Rate 99 05/19/25 04:48 Respiratory Rate 16 05/19/25 04:48 Blood Pressure 145/84 H 05/19/25 04:48 Pulse Oximetry 97 05/19/25 04:48 Oxygen Delivery Method Room Air 05/19/25 04:48 MDM - Eye Problem MDM Narrative Medical decision making narrative: Eneida is a 24-year-old female with no significant past medical history who presents the emergency department for evaluation of left eye pain upon arrival patient is nontoxic appearing, afebrile, no distress. On examination there is a small amount of discharge in the medial aspect upper eye with periorbital swelling, mild erythema. Conjunctiva with mild erythema, pupils equal, round, reactive to light. Extraocular movements are intact in patient with no pain during extraocular movements. Suspect likely allergy versus early periorbital cellulitis. Less likely orbital cellulitis (no pain with extraocular movements, no ophthalmoplegia, no vision changes, no proptosis, afebrile, nontoxic appearing). I discussed with patient and vish. At this time will recommend supportive care with Tylenol, ibuprofen, warm compresses, will start patient on a course of Keflex. Strict return precautions discussed, encouraged close outpatient follow-up. Patient understands and agrees with plan. Discharge Plan Discharge Clinical Impression: Acute left eye pain Patient Disposition: Home, Self-Care Condition: Stable Additional Instructions: Please follow-up with your primary care provider in the next 3-5 days for further evaluation and follow-up. Please call to schedule an appointment. Please take antibiotics as directed (3 times a day for the next 7 days). Please alternate taking Tylenol 1000 mg and ibuprofen 600 mg every 6 hours as needed for pain. If you alternate these medications do should be taking something every 3 hours. Please apply warm compress to the eye 3-4 times daily to help with swelling. Please return to the emergency department if you develop high fever, severe eye pain, eye pain that is worse with movement of your eye, severe headache, persistent vomiting, or any worsening symptoms. It was a pleasure taking care of you today. We hope you feel better soon. Prescriptions: No Action Lo Loestrin Fe 1 mg-10 mcg (24)/10 mcg (2) tablet 1 tab PO DAILY Follow Up/Referrals: Provider,Not a Local [Primary Care Provider, Family Practice] Stand Alone Forms: [employer] Info Instructions
== END 2025-05-19 05:43 | disposition home or self-care (01) ==
PROVIDERS: Emergency Provider Emergency Medicine
DX: H57.12 Ocular pain, left eye (principal)
CPT/HCPCS: 99283; 99284